=== PATIENT | male | born 1955 ===

== ENCOUNTER 2021-10-17 10:30 | Inpatient (IN) | payer OTHER ==
[~2021-10-17] VITALS: Ht 170.2 cm; Wt 87.5 kg
[2021-10-19] MEDS ORDERED: CENTRUM SILVER1 EAC4 (08:08)
[2021-10-19] MEDS ORDERED: GABAPENTIN300 M2 (08:08)
[2021-10-19] MEDS ORDERED: ARTHRITIS PAIN650 M1 (08:08)
[2021-10-19] MEDS ORDERED: VITAMIN C500 M1 (08:09)
[2021-10-19] MEDS ORDERED: MELOXICAM15 MG (08:09)
[2021-10-19] MEDS ORDERED: ADVIL200 MG (08:09)
== END 2021-10-21 15:23 | disposition home or self-care (01) | DRG 330 ==
LOC: SURH 10-19 05:29 → O/R 10-19 05:29 → SURH 10-19 10:30
PROVIDERS: ADMIT Colon & Rectal Surgery; ATTEND Colon & Rectal Surgery
PROC: 07BB4ZZ Excision of Mesenteric Lymphatic, Percutaneous Endoscopic Approach (ICD-10-PCS; 2021-10-19)
PROC: 0DTF4ZZ Resection of Right Large Intestine, Percutaneous Endoscopic Approach (ICD-10-PCS; principal; 2021-10-19 12:15)
DX: D12.6 Benign neoplasm of colon, unspecified (principal); K92.1 Melena; R59.0 Localized enlarged lymph nodes; Z85.038 Personal history of other malignant neoplasm of large intestine